=== PATIENT | female | born 1990 | race Caucasian/White ===

== ENCOUNTER 2017-08-14 14:45 | Emergency (ER) | payer BC ==
[~2017-08-14] VITALS: Ht 160 cm; Wt 67.6 kg
--- NOTE | 2017-08-14 15:33 | EKG ---
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
[2017-08-14] MEDS ORDERED: IOHEXOL 300 MG/ML 75 ML VIAL. IV ONE (15:45)
[2017-08-14] MEDS ORDERED: IPRATRPIUM/ALBUTEROL 0.5/2.5MG 3 ML NEBU. NEB ONE (15:45)
--- NOTE | 2017-08-14 15:46 | PHYS DOC ---
Past History Past Medical History: No Pertinent History Smoking: Cigarettes Adult General Chief Complaint Chief Complaint: SHORTNESS OF BREATH HPI HPI 27-year-old female patient without medical problem and states she developed sudden onset of shortness of breath 5 days ago with palpitation and chest tightness while she was at work. Patient complaining of episodes of exertional episodes of shortness of breath, palpitation, lightheadedness and dizziness near syncope with mild activity. She denies fever and chills, cough, recent immobilization, history of PE and DVT, taking control. Patient was seen by her primary care physician 3 days ago and had blood test yesterday and was called today to come to ER because of abnormal lab. Labs showing PCO2 of 21 and anion gap of 13. She was treated with inhaler without improvement of her condition. Review of Systems Review of Systems Constitutional: Denies fever or chills [] Eyes: Denies change in visual acuity, redness, or eye pain [] HENT: Denies nasal congestion or sore throat [] Respiratory: Denies cough, reports shortness of breath [] Cardiovascular: No additional information not addressed in HPI [] GI: Denies abdominal pain, nausea, vomiting, bloody stools or diarrhea [] : Denies dysuria or hematuria [] Musculoskeletal: Denies back pain or joint pain [] Integument: Denies rash or skin lesions [] Neurologic: Denies headache, focal weakness or sensory changes , reports dizziness[] Endocrine: Denies polyuria or polydipsia [] All other systems were reviewed and found to be within normal limits, except as documented in this note. Current Medications Current Medications Current Medications Medications (Trade) Dose Ordered Sig/[facility] Start Time Stop Time Status Last Admin Dose Admin Albuterol/ Ipratropium (Duoneb) 3 ml 1X ONCE 08/14/17 15:30 08/14/17 15:31 UNV Physical Exam Physical Exam Constitutional: Well developed, well nourished, mild distress, non-toxic appearance. [] HENT: Normocephalic, atraumatic, oropharynx moist, no oral exudates, nose normal. [] Eyes: PERRLA, EOMI, conjunctiva normal, no discharge. [] Neck: Normal range of motion, no tenderness, supple, no stridor. [] Cardiovascular:Heart rate regular rhythm, no murmur [] Lungs & Thorax: Bilateral breath sounds clear to auscultation [] Abdomen: Bowel sounds normal, soft, no tenderness, no masses, no pulsatile masses. [] Skin: Warm, dry, no erythema, no rash. [] Back: No tenderness, no CVA tenderness. [] Extremities: No tenderness, no cyanosis, no clubbing, ROM intact, no edema. [] Neurologic: Alert and oriented X 3, normal motor function, normal sensory function, no focal deficits noted. [] Psychologic: Affect normal, judgement normal, mood normal. [] Patient became shortness of breath and dizzy with walking inside the ER room with increasing of heart rate from 77 to 112 without hypoxia. EKG EKG EKG interpreted by me. EKG at 1529[ showed normal sinus rhythm at rate of [address] and T-wave abnormalities] Radiology/Procedures Radiology/Procedures [] Course & Med Decision Making Course & Med Decision Making Pertinent Labs and Imaging studies reviewed. (See chart for details) Dilution of patient in ER showed 27-year-old female patient with shortness of breath and dizziness and palpitation for 5 days. Patient had tachycardia with mild activity. CT of chest was unremarkable for PE and other acute finding. CBC and CMP was unremarkable. Lactic acid was negative. ABG showed pH of 7.54 and mild decrease of HCO3 at 18.5 with Po2 of 110. Patient currently has albuterol and Singulair inhaler and instructed to continue them. Plan to give a course of prednisone and instruction to follow with her primary care physician in 2 or 3 days if not getting better. Dragon Disclaimer Dragon Disclaimer This electronic medical record was generated, in whole or in part, using a voice recognition dictation system. Departure Departure: Impression: Primary Impression: Dyspnea Additional Impressions: Hyperventilation Respiratory alkalosis Disposition: HOME, SELF-CARE (At 1703) Condition: IMPROVED Referrals: ALEXA MAHAN FUR SEWER (PCP) Patient Instructions: Shortness of Breath Additional Instructions: Drink plenty of liquids Follow-up with your primary care physician in 3-5 days Return to ER if not getting better Continue home medication Scripts Hydrocodone Bit/Acetaminophen (NORCO 5-325 TABLET) 1 Each Tablet 1 TAB PO PRN Q6HRS PRN for PAIN, #10 TAB 0 Refills Prov: DOMINGO ARTEAGA MD 08/14/17 Methylprednisolone (MEDROL) 4 Mg Tab.ds.pk 1 PKG PO UD, #1 PKG Prov: DOMINGO ARTEAGA MD 08/14/17 Problem Qualifiers DOMINGO ARTEAGA MD August 14, 2017 15:46
[2017-08-14 16:06] LABS: BASO % 1 % (0-3); EOS % 1 % (0-3); HEMATOCRIT 39.6 % (36.0-47.0); HEMOGLOBIN 13.4 g/dL (12.0-15.5); LYMPH # 2.2 x10^3/uL (1.0-4.8); LYMPH % 27 % (24-48); MEAN CORPUSCULAR HEMOGLOBIN 31 pg (25-35); MEAN CORPUSCULAR HGB CONC 34 g/dL (31-37); MEAN CORPUSCULAR VOLUME 90 fL (79-100); MONO # 0.5 x10^3/uL (0.0-1.1); MONO % 6 % (0-9); NEUT # 5.4 x10^3uL (1.8-7.7); NEUT % 66 % (31-73); PLATELET COUNT 158 x10^3/uL (140-400); RED BLOOD COUNT 4.38 x10^6/uL (3.50-5.40); RED CELL DISTRIBUTION WIDTH 13.1 % (11.5-14.5); WHITE BLOOD COUNT 8.2 x10^3/uL (4.0-11.0)
--- NOTE | 2017-08-14 16:15 | RAD ---
CTA chest with contrast Indication: SHORTNESS OF BREATH, PE PROTOCOL
75MLS OMNI 300 IV CONTRAST . Comparison: No comparison is available. Technique: After bolus of intravenous contrast, CT imaging was performed of the chest. MIP reconstructions were obtained. Exposure: One or more of the following individualized dose reduction techniques were utilized for this examination: 1. Automated exposure control 2. Adjustment of the mA and/or kV according to patient size 3. Use of iterative reconstruction technique. Findings: Pulmonary arteries:No evidence of pulmonary embolism. Thoracic aorta: No evidence of aneurysm. Limited opacification but no definite dissection. Thyroid gland:Visualized aspect is unremarkable. Lymph nodes:No significant enlargement Heart: No significant pericadial effusion. Pleural spaces: No significant effusion Lungs: No dominant airspace consolidation or large mass. Trachea and central airways: Patent Bones: No destructive process Upper abdomen: Slices were obtained through the upper abdomen, but are of limited usefulness due to technique.No obvious acute findings. Impression: Negative for pulmonary embolism or other acute abnormality. Electronically signed by: Gonzales Carney MD (08/14/2017 4:12 PM) [id number]
[2017-08-14 16:19] LABS: ALBUMIN 3.7 g/dL (3.4-5.0); ALBUMIN/GLOBULIN RATIO 1.1 (1.0-1.7); CALCIUM 8.7 mg/dL (8.5-10.1); CREATININE 0.7 mg/dL (0.6-1.0); GFR 100.4; POTASSIUM 3.5 mmol/L (3.5-5.1); TOTAL BILIRUBIN 0.3 mg/dL (0.2-1.0); TOTAL PROTEIN 7.2 g/dL (6.4-8.2)
[2017-08-14] MEDS ORDERED: methylPREDNISolone SOD SUCC PF 125 MG/2 ML VIAL. IV ONE (16:45)
[2017-08-14] MEDS ORDERED: IV NORMAL SALINE 1,000ML 1,000 ML IV ONE (16:45)
[2017-08-14] MEDS ORDERED: METH4TAB2 PO (17:08)
[2017-08-14] MEDS ORDERED: HYDR-971 PO (17:08)
[2017-08-14 17:32] VITALS: BP 113/51
[2017-08-14 17:34] LABS: BGAS PH 7.55 (7.35-7.45)
== END 2017-08-14 17:35 | disposition home or self-care (01) ==
LOC: ER 14:45
DX: E87.3 Alkalosis (principal); R06.4 Hyperventilation; F17.210 Nicotine dependence, cigarettes, uncomplicated
CPT/HCPCS: 36415; 36600; 71275; 80053; 82803; 83605; 84484; 85025; 93005; 94640; 96361; 96374; 99285; J2930; J7620; Q9967; J7030